=== PATIENT | male | born 1970 | race Two or more races ===

== ENCOUNTER 2019-11-13 14:11 | Emergency (ER) | payer MEDICAID ==
[~2019-11-13] VITALS: Ht 172.7 cm; Wt 100.0 kg
[2019-11-13] MEDS ORDERED: ACETAMINOPHEN WITH CODEINE 300/30MG TABLET PO ONE (14:30)
[2019-11-13] MEDS ORDERED: MORPHINE SULFATE 4 MG/ML CPJ (NOT FOR IM USE) IV ONE (14:45)
[2019-11-13] MEDS ORDERED: ONDANSETRON HCL 4MG/2ML INJ IV ONE (14:45)
[2019-11-13] MEDS ORDERED: CEFAZOLIN 1000MG PREMIX 50 ML IV ONE (14:45)
[2019-11-13 15:55] LABS: BASOPHILS % 0.8 % (0.0-2.0); EOSINOPHILS % 2.1 % (0.0-5.0); HEMATOCRIT. 46.6 % (42.0-52.0); HEMOGLOBIN. 16.3 g/dL (14.0-18.0); LYMPHOCYTES % 22.3 % (20.0-50.0); MEAN CORPUSCULAR HEMOGLOBIN 32.3 pg (28.0-32.0); MEAN CORPUSCULAR VOLUME 92.6 fL (80.0-94.0); MEAN PLATELET VOLUME 10.3 fl (7.4-10.4); MONOCYTES % 6.1 % (2.0-8.0); NEUTROPHILS % 68.7 % (40.0-76.0); PLATELET 210 x1000/uL (130-400); RED BLOOD CELL COUNT 5.03 mill/uL (4.7-6.1); RED CELL DISTRIBUTION WIDTH 13.3 % (11.6-14.6)
[2019-11-13 15:56] LABS: CHLORIDE 109 mEq/L (98-107)
[2019-11-13 15:58] LABS: PROTHROMBIN TIME 10.6 sec (9.6-11.0)
[2019-11-13] MEDS ORDERED: MORPHINE SULFATE 2 MG/ML CPJ (NOT FOR IM USE) IV ONE (18:00)
[2019-11-13 19:26] VITALS: BP 148/81
== END 2019-11-13 19:58 | disposition short-term general hospital (02) ==
LOC: ER 14:11
DX: S62.391B Other fracture of second metacarpal bone, left hand, initial encounter for open fracture (principal); W31.82XA Contact with other commercial machinery, initial encounter; Y93.H3 Activity, building and construction; Y92.018 Other place in single-family (private) house as the place of occurrence of the external cause
CPT/HCPCS: 36415; 73130; 80053; 85025; 85610; 96365; 96375; 96376; 99285; J0690; J2270; J2405